=== PATIENT | female | born 1940 ===

== ENCOUNTER 2018-03-17 10:00 | Inpatient (IN) | payer OTHER ==
[~2018-03-17] VITALS: Ht 154.9 cm; Wt 55.3 kg
[2018-03-17] MEDS ORDERED: LIPITOR40 MG PO (13:26)
[2018-03-17] MEDS ORDERED: OMEPRAZOLE20 MG PO (13:26)
[2018-03-17] MEDS ORDERED: COZAAR50 MG PO (13:26)
[2018-03-17] MEDS ORDERED: JANUMET XR 1001 EACH PO (13:27)
[2018-03-17] MEDS ORDERED: FOLGARD TABLET1 EACH PO (13:27)
[2018-03-27] MEDS ORDERED: INTESTINEX680 M1 PO (10:50)
[2018-03-27] MEDS ORDERED: ULTRACET PO (10:50)
== END 2018-03-27 12:01 | disposition home or self-care (01) | DRG 331 ==
LOC: O/R 03-24 05:32 → SURG 03-24 05:32 → SURH 03-24 07:00 → SURG 03-24 14:48 → MEDI 03-24 14:48 → SURG 03-24 21:10
PROVIDERS: Surgery
PROC: 07TC4ZZ Resection of Pelvis Lymphatic, Percutaneous Endoscopic Approach (ICD-10-PCS; 2018-03-24)
PROC: 3E0F7GC Introduction of Other Therapeutic Substance into Respiratory Tract, Via Natural or Artificial Opening (ICD-10-PCS; 2018-03-24)
PROC: 4A12X4Z Monitoring of Cardiac Electrical Activity, External Approach (ICD-10-PCS; 2018-03-24)
PROC: 0DTF4ZZ Resection of Right Large Intestine, Percutaneous Endoscopic Approach (ICD-10-PCS; principal; 2018-03-24 07:00)
DX: C18.0 Malignant neoplasm of cecum (principal); I11.9 Hypertensive heart disease without heart failure; E11.9 Type 2 diabetes mellitus without complications; E78.00 Pure hypercholesterolemia, unspecified; D64.89 Other specified anemias